=== PATIENT | female | born 1945 | race Caucasian/White ===

== ENCOUNTER → 2018-04-25 | Outpatient (CLI) | payer OTHER | LOC: CAT 09:47 | DX: Z13.6 Encounter for screening for cardiovascular disorders (principal); E78.00 Pure hypercholesterolemia, unspecified ==

== ENCOUNTER → 2019-01-21 | Outpatient (CLI) | payer OTHER | LOC: RAD | DX: Z12.31 Encounter for screening mammogram for malignant neoplasm of breast (principal); M85.88 Other specified disorders of bone density and structure, other site ==

== ENCOUNTER → 2019-02-27 | Outpatient (CLI) | payer OTHER ==
[~2019-02-27] VITALS: Ht 157.5 cm; Wt 59.0 kg
[~2019-02-27] MED LIST: CALCIUM 500 +1 EAC5 PO; CENTRUM SILVER1 EAC4 PO; CRESTOR10 MG PO; EXCEDRIN CAPLE1 EACH PO
--- NOTE | 2019-02-27 10:37 | P ---
[facility] [place] [address] PROCEDURE REPORT Name: MENA TOVAR Room #: REG [facility]#: [id number] Admission: 02/27/19 Attend Phys: Maikel Ace MD Discharge: Date of : 49 Report #: [id number] THIS REPORT FOR: //name// CC: Young Castaneda MD OUTPATIENT COLONOSCOPY REPORT BRIEF HISTORY: The patient is a 74-year-old woman for average risk screening colonoscopy. Last colonoscopy was about 19 years ago. PREOPERATIVE DIAGNOSIS: Average risk screening colonoscopy. POSTOPERATIVE DIAGNOSES: 1. Multiple diminutive polyps. 2. Small internal hemorrhoids. MEDICATIONS: Deep sedation with propofol per anesthesia. SPECIMENS: 1. Diminutive cecal polyp. 2. Diminutive polyp at 60 cm. 3. Diminutive polyp at 50 cm. ESTIMATED BLOOD LOSS: 3 mL. PROCEDURE: Colonoscopy to cecum and terminal ileum with biopsy. FINDINGS: Prior to propofol sedation, procedure of colonoscopy was discussed with the patient as well as potential risks and its complications. She indicates she understands and desires to proceed. DESCRIPTION OF PROCEDURE: With the patient in left lateral decubitus position, digital examination was completed, which revealed no abnormalities. Subsequently, the Olympus video colonoscope was introduced into the rectum, advanced under direct vision to the cecum. Done with minimal difficulty. The cecum was identified by the ileocecal valve and the appendiceal orifice. I was able to visualize the distal segment of the terminal ileum, which was inspected and noted to be unremarkable. At that point, the scope was slowly withdrawn and careful circumferential views were obtained. Upon slow withdrawal of the scope, the prep was excellent. Mucosa was within normal limits, normal vascular pattern, normal light reflex. In the cecum, a diminutive polyp was seen and removed with biopsy forceps. Scope was further withdrawn and no additional abnormalities were noted until the descending colon was reached and at 60 cm, a diminutive polyp was seen and removed with biopsy forceps. At 50 cm, another [address] [address] PROCEDURE REPORT Name: DAMENA SEGURA Room #: REG [facility] DaniDenae#: [id number] Admission: 02/27/19 Attend Phys: Maikel Ace MD Discharge: Date of : 49 Report #: [id number] diminutive polyp was seen and removed with biopsy forceps. The scope was further withdrawn and no additional polyps were seen. The scope was withdrawn from the rectum upon retroflexion, small hemorrhoids were seen. The scope was withdrawn. The patient tolerated the procedure well. CONDITION OF THE PATIENT UPON DISCHARGE: Following procedure, the patient was drowsy, aroused, conversant, and will be discharged home when fully ambulatory. INSTRUCTIONS TO THE PATIENT AND FAMILY AT THE TIME OF DISCHARGE: Three diminutive polyps were identified and removed today. We will follow up on the pathology. If all three polyps are adenomas, she is to return in 3 years; if 1 or 2 adenomas, 5 years would be indicated. If none are adenomas, then 10 years would be indicated. Last colonoscopy was approximately 19 years ago. Withdrawal time from the cecum was 14 minutes 48 seconds. <ELECTRONICALLY SIGNED> By: Maikel Ace MD 02/27/19 1037 [id number] Maikel Ace MD /nt
--- NOTE | 2019-02-28 13:07 | PATH ---
[facility] [place] [address] PATHOLOGY RPT PROCEDURE Name: MENA GREENFIELD Jaquan Room #: REG BERT[facility] Flannery.#: [id number] Admission: 02/27/19 Date of : 49 Discharge: Report #: [id number] Path Case #: [id number] [facility] Accession Number: [id number] . 01 Material submitted: . PART A: cecum - POLYP AT CECUM PART B: colon - POLYP AT 60CM PART C: colon - POLYP AT 50CM . 01 Clinical history: . Screening, colon polyps . 02 Diagnosis: A. Colon, cecum, biopsy: - Hyperplastic polyp. . B. Colon, 60 cm, biopsy: - Colonic mucosa with mild hyperplastic changes. . C. Colon, 50 cm, biopsy: - Hyperplastic polyp. (REID:[email or web address]; 02/28/2019) QTP/02/28/2019 . 02 Electronically signed: . Leandro Prakash MD, Pathologist NPI- [id number] . 01 Gross description: . A. The specimen is received in formalin, labeled "Mena Greenfield, polyp at cecum", is an irregular fragment of brar rubbery polyp measuring 0.5. The specimen is entirely submitted in A1. . B. The specimen is received in formalin, labeled "Mena Greenfield, polyp at 60 cm", is an irregular fragment of brar rubbery soft tissue measuring 0.3 cm in greatest dimension. The specimen is entirely submitted in B1. . C. The specimen is received in formalin, labeled "Mena Greenfield, polyp at 50 cm", is an irregular fragment of brar rubbery soft tissue measuring 0.3 cm. The specimen is entirely submitted in C1. (SWS; 02/27/2019) SHS/SHS . 02 Pathologist provided ICD-10: K63.5, Z12.11 . 02 [facility] [place] [address] PATHOLOGY RPT PROCEDURE Name: MENA GREENFIELD [facility] [id number] Admission: 02/27/19 Date of : 49 Discharge: Report #: [id number] Path Case #: [id number] Specimen Comment: A courtesy copy of this report has been sent to Specimen Comment: [phone], , . Specimen Comment: Report sent to , and Performed at: [address] [facility], [place], [place] [id number] MD Hemant Pal MD Phone: [phone] Performed at: [address] [facility] [id number] MD Shonna Del Cid MD Phone: [phone]
== END | disposition home or self-care (01) ==
LOC: GI 06:55
DX: Z12.11 Encounter for screening for malignant neoplasm of colon (principal); K63.5 Polyp of colon; K64.8 Other hemorrhoids; E78.00 Pure hypercholesterolemia, unspecified; Z90.710 Acquired absence of both cervix and uterus; Z98.890 Other specified postprocedural states; Z79.899 Other long term (current) drug therapy; Z87.19 Personal history of other diseases of the digestive system
CPT/HCPCS: 62110; 62900

== ENCOUNTER → 2020-01-27 | Outpatient (CLI) | payer OTHER | LOC: RAD 08:08 | PROVIDERS: ATTEND Family Medicine | DX: Z12.31 Encounter for screening mammogram for malignant neoplasm of breast (principal) ==

== ENCOUNTER → 2020-02-12 | Outpatient (CLI) | payer OTHER | LOC: MRI 09:30 | PROVIDERS: ATTEND Family Medicine | DX: R92.2 Inconclusive mammogram (principal) ==

== ENCOUNTER → 2020-06-08 | Outpatient (CLI) | payer OTHER | LOC: SJCVC 10:12 | PROVIDERS: ATTEND Internal Medicine Cardiovascular Disease | DX: R93.1 Abnormal findings on diagnostic imaging of heart and coronary circulation (principal); E78.00 Pure hypercholesterolemia, unspecified; Z79.82 Long term (current) use of aspirin; Z79.899 Other long term (current) drug therapy; Z82.49 Family history of ischemic heart disease and other diseases of the circulatory system ==

== ENCOUNTER → 2021-02-08 | Outpatient (CLI) | payer OTHER | LOC: BC 09:15 | PROVIDERS: ATTEND Family Medicine | DX: Z12.31 Encounter for screening mammogram for malignant neoplasm of breast (principal) ==

== ENCOUNTER → 2021-06-08 | Outpatient (CLI) | payer OTHER | LOC: SJCVC 09:44 | PROVIDERS: ATTEND Internal Medicine Cardiovascular Disease | DX: R94.31 Abnormal electrocardiogram [ECG] [EKG] (principal); R93.1 Abnormal findings on diagnostic imaging of heart and coronary circulation; E78.5 Hyperlipidemia, unspecified; I65.23 Occlusion and stenosis of bilateral carotid arteries; E78.00 Pure hypercholesterolemia, unspecified; Z82.49 Family history of ischemic heart disease and other diseases of the circulatory system; Z72.89 Other problems related to lifestyle; Z79.82 Long term (current) use of aspirin; Z79.899 Other long term (current) drug therapy ==